=== PATIENT | male | born 1975 | race Caucasian/White ===

== ENCOUNTER 2020-01-25 15:52 | Emergency (ER) | payer OTHER, SELFPAY ==
[2020-01-25 15:53] VITALS: BP 133/85; PULSE 115; RESP 16; TEMP 36.9; O2SAT 95; BMI 27.5
--- NOTE | 2020-01-25 16:06 | CT_ITS ---
STUDY: CT ABDOMEN AND PELVIS WITH CONTRAST REASON FOR EXAM: Male, 44 years old. INTERMITTENT RIGHT SIDE ABD PAIN X-FEW MONTHS RADIATION DOSAGE (If Supplied By Facility): CTDIvol = ( 14.47 ) mGy, DLP = ( 1047.56 ) mGycm TECHNIQUE: Transaxial images were obtained from the dome of the diaphragm to the symphysis pubis with oral contrast. Oral and amp; IV Gastrografin and amp; 100mL Isovue-300 was administered. Sagittal and coronal images were reconstructed. Individualized dose optimization techniques were used for this CT. COMPARISON: 05/08/2013 FINDINGS: The visualized lung bases are unremarkable. The visualized portions of the heart are within normal limits. Multiple 1 cm right hepatic lobe cysts. Multiple subcentimeter hepatic hypodensities. Normal gallbladder and extrahepatic biliary system. There are multiple benign calcified granulomata of the spleen. Normal pancreas. Normal bilateral adrenal glands. Normal right kidney. Normal left kidney. Normal visualized stomach. Normal small intestine. Normal colon. Appendectomy. Normal abdominal aorta. Normal inferior vena cava. Normal retroperitoneum. Normal urinary bladder. Normal abdominal wall. Normal osseous structures. Clips in the right groin. CT/Abdomen/Pelvis WITH Contrast IMPRESSION: No evidence of appendicitis, acute intestinal pathology, or acute obstructive uropathy. Electronically Signed: Abraham Berger MD at 18:11 EDT Tel , Service support ,
--- NOTE | 2020-01-25 16:10 | ED.VIS.GEN ---
History of Present Illness Chief Complaint: Abd Pain Informant: Patient Onset: Month(s) Context: Gradual Onset Timing: Intermittent Current Severity: Moderate Maximum Severity: Moderate Narrative: Patient presents secondary to mid right-sided abdominal pain. He states his been having pain intermittently for the last year or so. He initially talked to his doctor they thought it might be related to eating dairy products. Lab work done in January 2019 was unremarkable and no further work-up was pursued at that time. Patient states the pain has been getting worse recently, with the worst day being today. He denies fever or chills. He has not been able to definitively relate the pain to eating. He does have a history of prior appendectomy. Past Medical History - Allergies and Home Meds Allergies/Adverse Reactions: Allergies Sulfa (Sulfonamide Antibiotics) Allergy (Verified 01/25/20 15:53) Itching Primary Care Physician: Yeison Andrea NP-C [Primary Care Provider] - Past Medical History: None Surgical History: no surgical history, appendectomy Smoking Status: Never smoker Review of Systems General: Denies: Chills, Fever Eyes: Denies: Visual changes - bilaterally ENT: Denies: Bilateral ear pain Cardiovascular: Denies: Chest pain Respiratory: Denies: Dyspnea, Cough Gastrointestinal: Reports: Abdominal pain. Denies: Nausea, Vomiting, Diarrhea Genitourinary: Denies: Dysuria Musculoskeletal: Denies: Swelling, Extremity Pain Neurological: Denies: Headache Hematologic: Denies: Easy bruising, Easy bleeding Allergy: Denies: Uticaria Physical Exam Vital Signs/Narrative: Vital Signs Temp Pulse Resp BP Pulse Ox 01/25/20 15:53 98.5 F 115 H 16 133/85 H 95 Inital Vital Signs reviewed: Yes General: Well nourished, Well developed Head: Normocephalic ENT: Moist mucous membranes Neck: Supple Cardiovascular: Regular rate, Regular rhythm Respiratory: No distress, CTA bilaterally Abdomen: Soft, Normal bowel sounds, Tender - Mild tenderness in the right mid abdomen. No guarding or rebound.. Negative for: Roth's sign Extremities: Nontender Skin: Normal color Neurological: Alert, Oriented x3 Psychological: Normal affect Diagnostic/Tx/Re-eval Impressions Abdomen/Pelvis CT 01/25/20 16:06 IMPRESSION: No evidence of appendicitis, acute intestinal pathology, or acute obstructive uropathy. Electronically Signed: Abraham Berger MD at 18:11 EDT Tel , Service support , 01/25/20 16:06 Abdomen/Pelvis WITH Contrast [CT] Stat Laboratory Results 01/25/20 01/25/20 01/25/20 16:16 16:16 16:25 WBC 8.7 RBC 5.25 Hgb 15.5 Hct 46.4 MCV 88.4 MCH 29.5 MCHC 33.4 RDW Std Deviation 41.8 RDW Coeff of [place] 13.0 Plt Count 219 MPV 10.2 Immature Gran % (Auto) 0.500 Neut % (Auto) 80.9 H Lymph % (Auto) 12.7 L [place] % (Auto) 4.7 Eos % (Auto) 0.6 Baso % (Auto) 0.6 Absolute Neuts (auto) 7.1 Absolute Lymphs (auto) 1.11 Nucleated RBC % 0 Sodium 141 Potassium 3.7 Chloride 110 H Carbon Dioxide 26.0 Anion Gap 5 BUN 10 Creatinine 1.05 Estim Creat Clear Calc 91.73 Est GFR (MDRD) Af Amer 98 Est GFR (MDRD) Non-Af 81 BUN/Creatinine Ratio 9.5 L Glucose 114 H Calcium 9.1 Total Bilirubin 0.60 Direct Bilirubin 0.25 AST 15 ALT 26 Alkaline Phosphatase 84 Total Protein 7.8 Albumin 4.1 Globulin 3.7 Urine Color Straw Urine Clarity Clear Urine pH 7.0 Ur Specific [place] 1.010 Urine Protein Negative Urine Glucose (UA) Normal Urine Ketones Negative Urine Occult Blood Negative Urine Nitrite Negative Urine Bilirubin Negative Urine Urobilinogen Normal Ur Leukocyte Esterase Negative Urine RBC 0 SEEN Urine WBC 0-5 SEEN Ur Squamous Epith Cells 0 SEEN Urine Bacteria 1+ Urine Mucus 0 SEEN - Medical Decision Making She declined any pain medication on the emergency room. On repeat evaluation patient is resting comfortably. Test results are discussed with him. CT scan is read as normal. On my review he does have stool concentrated in the ascending colon around the area of his pain. The remainder of the bowel appears to be fairly free from stool. He may be having some spasm and causing pain. I recommended starting MiraLAX regularly to see if this helps his symptoms. If his pain is still present in a week, I suggested following with his primary care physician. At that time he may require either a HIDA scan or a colonoscopy to further evaluate colon and gallbladder. At this time there is no sign of bowel obstruction or acute cholecystitis. ED Disposition - Plan for ED Patient: Disposition: Home or Assisted Living Diagnosis: Abdominal pain Instructions: ED Unknown Causes of Abdominal Pain Male Referrals: Yeison Andrea NP-C [Primary Care Provider] - 1 Week
[2020-01-25] MEDS: 0.9% Normal Saline 1,000 ML 150 ML IV (16:27)
[2020-01-25 16:29] LABS: Absolute Lymphocyte Count 1.11 X10^3/uL (0.83-4.51); Absolute Neutrophil Count 7.1 X10^3/uL (2.0-7.7); Basophil# 0.05 X10^3/uL; Basophil% 0.6 % (0-1); Eosinophil# 0.05 X10^3/uL; Eosinophils% 0.6 % (0-5); Hematocrit 46.4 % (40-54); Hemoglobin 15.5 g/dL (13.0-16.5); Lymphocyte # 1.11 X10^3/ul (4.0); Lymphocyte % 12.7 % (19-41); Mean Corp Hgb Conc 33.4 g/dL (32-36); Mean Corpuscular Hgb 29.5 pg (27.0-32.0); Mean Corpuscular Volume 88.4 fL (80-94); Mean Platelet Vol. 10.2 fl (6.2-12.0); Monocyte# 0.41 X10^3/uL; Monocyte% 4.7 % (0-10); NRBC Flagged by Analyzer 0 % (0-5); Neutrophil # 7.07 X10^3/uL (2.7-7.7); Neutrophil % 80.9 % (47-70); Platelet Count 219 K/mm3 (150-450); RBC Distribution Width SD 41.8 fl (35.1-43.9); Red Blood Count 5.25 M/mm3 (4.6-6.2); White Blood Count 8.7 K/mm3 (4.4-11.0)
[2020-01-25 16:32] LABS: Mucous, Urine 0 SEEN /hpf (<or=2+); Red Blood Cells-Urine 0 SEEN /hpf (0-5); Squamous Epithelial Cells - UA 0 SEEN /hpf (0-5)
[2020-01-25 16:34] LABS: Color, Urine Straw (Yellow); Glucose, Dipstick Normal (Normal); Ketone-Dipstick Negative (Negative); Leukocyte Esterase-Dipstick Negative /ul (Negative); Nitrite-Dipstick Negative (Negative); Occult Blood-Urine Negative /ul (Negative); Protein-Dipstick Negative (Negative); Urine Bilirubin Dipstick Negative (Negative); Urine Clarity Clear (Clear); Urine Urobilinogen Normal (Normal)
[2020-01-25 16:39] LABS: AST(SGOT) 15 U/L (15-37); Alanine Aminotransfer ALT/SGPT 26 U/L (16-61); Albumin, Serum 4.1 g/dL (3.2-5.0); Alkaline Phosphatase 84 U/L (45-117); Anion Gap 5 (5-15); BUN 10 mg/dL (7-18); BUN/Creat Ratio 9.5 RATIO (10-20); Bilirubin, Direct 0.25 mg/dL (0.00-0.30); Calcium,Total 9.1 mg/dL (8.5-10.1); Chloride 110 mmol/L (98-107); Creatinine, Serum 1.05 mg/dL (0.70-1.30); EST Glomerular Filtration Rate 81 mL/min (>60); Est Glom Filt Rate - Afr Amer 98 mL/min (>60); Estimated Creatinine Clearance 91.73 ml/min; Globulin 3.7 g/dL (2.2-4.2); Glucose 114 mg/dL (74-106); Potassium 3.7 mmol/L (3.5-5.1); Protein, Total 7.8 g/dL (6.4-8.2); Sodium Level 141 mmol/L (136-145)
[2020-01-25 16:44] LABS: Bacteria 1+ /hpf (None Seen); White Blood Cells 0-5 SEEN /hpf (0-5)
== END 2020-01-25 18:40 | disposition home or self-care (01) ==
PROVIDERS: Emergency Provider Emergency Medicine; PCP Nurse Practitioner Primary Care
DX: R10.9 Unspecified abdominal pain (principal); Z90.49 Acquired absence of other specified parts of digestive tract
CPT/HCPCS: 74177; 80048; 80076; 81001; 85025; 96360; 96361; 99283; J7030; Q9967; A4216